=== PATIENT | male | born 1990 | race Hispanic/Latino ===

== ENCOUNTER 2025-01-11 15:24 | Emergency (ER) | payer SELFPAY ==
[~2025-01-11] VITALS: Ht 167.6 cm; Wt 72.5 kg
[2025-01-11] MEDS ORDERED: Diph, Acellular Pertussis, Tet 0.5 ML/VIAL (Tdap) SDV IM ONE (15:40)
[2025-01-11] MEDS ORDERED: ceFAZolin 1 GM/VIAL SDV IM ONE (15:40)
[2025-01-11] MEDS ORDERED: STERILE WATER 10 ML/VIAL SDV IM ONE (15:40)
[2025-01-11] MEDS ORDERED: CEPHALEXIN500 M1 PO ×2 (16:46→19:25)
== END 2025-01-11 17:33 | disposition home or self-care (01) | DRG 605 ==
LOC: ED 15:24
PROC: 0HQGXZZ Repair Left Hand Skin, External Approach (ICD-10-PCS; principal; 2025-01-11)
DX: S61.012A Laceration without foreign body of left thumb without damage to nail, initial encounter (principal); W26.0XXA Contact with knife, initial encounter; Y92.009 Unspecified place in unspecified non-institutional (private) residence as the place of occurrence of the external cause
CPT/HCPCS: 90715; J0690